=== PATIENT | female | born 1945 | race Native Hawaiian/Other Pacific Islander ===

== ENCOUNTER 2016-10-01 09:35 | Outpatient (CLI) | payer OTHER | END 2016-10-01 10:40 | disposition home or self-care (01) | LOC: LABW 09:35 | PROVIDERS: Internal Medicine Cardiovascular Disease | DX: E78.4 Other hyperlipidemia (principal); Z09 Encounter for follow-up examination after completed treatment for conditions other than malignant neoplasm | CPT/HCPCS: 36415; 80061; 80076 ==

== ENCOUNTER 2017-10-16 08:57 | Outpatient (CLI) | payer OTHER | END 2017-10-16 19:13 | disposition home or self-care (01) | LOC: LABW 08:57 | PROVIDERS: Internal Medicine Cardiovascular Disease | DX: E78.5 Hyperlipidemia, unspecified (principal); Z09 Encounter for follow-up examination after completed treatment for conditions other than malignant neoplasm | CPT/HCPCS: 36415; 80061; 80076 ==

== ENCOUNTER 2018-04-05 08:52 | Outpatient (CLI) | payer OTHER | END 2018-04-05 22:46 | disposition home or self-care (01) | LOC: LABW 08:52 | PROVIDERS: Internal Medicine Cardiovascular Disease | DX: E78.5 Hyperlipidemia, unspecified (principal); Z79.01 Long term (current) use of anticoagulants | CPT/HCPCS: 36415; 80061; 80076 ==

== ENCOUNTER 2018-10-15 09:22 | Outpatient (CLI) | payer OTHER | END 2018-10-15 23:31 | disposition home or self-care (01) | LOC: LABW 09:22 | PROVIDERS: Internal Medicine Cardiovascular Disease | DX: E78.49 Other hyperlipidemia (principal); Z09 Encounter for follow-up examination after completed treatment for conditions other than malignant neoplasm | CPT/HCPCS: 36415; 80061; 80076; 84443 ==

== ENCOUNTER 2020-01-18 08:54 | Outpatient (CLI) | payer OTHER | END 2020-01-18 23:18 | disposition home or self-care (01) | LOC: RESP 08:54 → US 10:00 → RESP 23:18 | DX: I65.29 Occlusion and stenosis of unspecified carotid artery (principal); I25.10 Atherosclerotic heart disease of native coronary artery without angina pectoris ==

== ENCOUNTER 2020-01-26 08:10 | Outpatient (CLI) | payer OTHER ==
[~2020-01-26] VITALS: Ht 154.9 cm; Wt 81.6 kg
== END 2020-01-26 19:43 | disposition home or self-care (01) ==
LOC: NM 08:10
DX: I65.29 Occlusion and stenosis of unspecified carotid artery (principal); I25.10 Atherosclerotic heart disease of native coronary artery without angina pectoris
CPT/HCPCS: A9500; J2785

== ENCOUNTER 2020-11-21 09:04 | Outpatient (CLI) | payer OTHER | END 2020-11-21 23:29 | disposition home or self-care (01) | LOC: US 09:04 | PROVIDERS: ATTEND Internal Medicine Cardiovascular Disease | DX: I65.29 Occlusion and stenosis of unspecified carotid artery (principal) ==

== ENCOUNTER 2023-05-27 09:22 | Outpatient (CLI) | payer OTHER | END 2023-05-27 19:18 | disposition home or self-care (01) | LOC: MAMMO 09:22 | PROVIDERS: ATTEND Internal Medicine | DX: N64.59 Other signs and symptoms in breast (principal) ==